=== PATIENT | female | born 1980 | race Caucasian/White ===

== ENCOUNTER 2020-02-17 19:08 | Emergency (ER) | payer MEDICAID ==
[~2020-02-17] VITALS: Ht 162.6 cm; Wt 72.6 kg
[2020-02-17 19:14] VITALS: BP 144/83
--- NOTE | 2020-02-17 19:46 | NUR ---
Patient given and explained medication. Verbalizes understanding not to operate behind machinery while taking prescribed narcotics.
--- NOTE | 2020-02-17 19:48 | NUR ---
Patient discharged to home in stable condition. Written and verbal after care instructions given. Patient verbalizes understanding of instruction.
== END 2020-02-17 20:28 | disposition home or self-care (01) ==
LOC: ER 19:14
DX: O26.891 Other specified pregnancy related conditions, first trimester (principal); K02.9 Dental caries, unspecified; Z3A.01 Less than 8 weeks gestation of pregnancy